=== PATIENT | male | born 1955 | race Caucasian/White ===

== ENCOUNTER 2020-11-28 08:44 | Day surgery (SDC) | payer OTHER ==
[2020-11-22 14:15] VITALS: BMI 55.5
[2020-11-28] MEDS ORDERED: LIDOCAINE 1% (10MG/ML) FOR IV START INTRADERMA ONE (09:30)
[2020-11-28] MEDS ORDERED: LACTATED RINGERS 1,000 ML IV ONE (09:30)
[2020-11-28 09:35] VITALS: TEMP 97.8
[2020-11-28] MEDS ORDERED: PROPOFOL 10 MG/ML 20 ML VIAL IV ONE (09:35)
[2020-11-28] MEDS ORDERED: LIDOCAINE 1% INJ 10MG/ML (20 ML MDV) ONE (09:35)
--- NOTE | 2020-11-28 10:16 | P.PCN ---
Date of Procedure: 11/28/20 Description of Procedure: BRIEF HISTORY: Patient is a 65-year-old male presenting for outpatient colonoscopy for screening for malignant neoplasm of the colon. No prior colonoscopies reported. No change in bowel habits or abdominal pain reported. No family history of colon cancer. PROCEDURE PERFORMED: Colonoscopy with polypectomy. PREOPERATIVE DIAGNOSIS: Screening for malignant neoplasm the colon, no prior colonoscopy reported. ESTIMATED BLOOD LOSS: Minimal. IV sedation per Anesthesia. PROCEDURE: After informed consent was obtained, the patient, was brought into the endoscopy unit. IV sedation was administered by Anesthesia under continuous monitoring. Digital rectal examination was normal. Initially the Olympus CF-190 flexible video colonoscope was then inserted in the rectum, gradually advanced into the cecum without any difficulty. Careful examination was performed as the scope was gradually being withdrawn. Ileocecal valve and the appendiceal orifice were visualized and appeared normal. Prep was excellent. Mucosa of the cecum, ascending colon, transverse colon, descending colon, sigmoid colon, and rectum appeared normal. Diminutive polyps measuring 1-2 mm in size removed from the hepatic flexure, transverse colon, splenic flexure and descending colon. Retro flexion was performed in the rectum and no lesions were seen, low-grade internal hemorrhoids noted. The patient tolerated the procedure well. IMPRESSION: 4 diminutive polyps removed with cold forcep polypectomy from the hepatic flexure, transverse colon, splenic flexure and descending colon. Internal hemorrhoids. RECOMMENDATIONS: Findings of this examination were discussed with the patient and his family. Okay to resume diet. Okay to resume medications. Await pathology from polypectomies. Recommend repeat colonoscopy in 5 years pending pathology from polypectomies.
[2020-11-28 10:41] VITALS: BP 148/78; PULSE 70; RESP 16
== END 2020-11-28 11:06 | disposition home or self-care (01) ==
LOC: ORWHC2ENDO 08:44
PROVIDERS: ATTEND Internal Medicine
DX: Z12.11 Encounter for screening for malignant neoplasm of colon (principal); D12.3 Benign neoplasm of transverse colon; D12.4 Benign neoplasm of descending colon; K64.8 Other hemorrhoids; E78.5 Hyperlipidemia, unspecified; F32.9 Major depressive disorder, single episode, unspecified; E66.01 Morbid (severe) obesity due to excess calories; Z68.43 Body mass index [BMI] 50.0-59.9, adult; Z79.1 Long term (current) use of non-steroidal anti-inflammatories (NSAID); Z79.899 Other long term (current) drug therapy; Z79.891 Long term (current) use of opiate analgesic
CPT/HCPCS: 88305; 45380; J2001; J2704

== ENCOUNTER 2022-01-01 14:50 | Emergency (ER) | payer OTHER ==
[2022-01-01 15:05] VITALS: BP 119/71; PULSE 81; RESP 18; TEMP 98
--- NOTE | 2022-01-01 15:57 | ED ---
General Adult HPI - General Chief complaint: Urogenital Stated complaint: Scrotum Swelling Time Seen by Provider: 01/01/22 15:24 Source: patient, RN notes reviewed, old records reviewed Mode of arrival: ambulatory Limitations: no limitations - History of Present Illness Initial comments: 66-year-old male presents from outpatient clinic for evaluation of scrotal swelling. Patient states his symptoms have been present for the past 5 days. He had discontinued his normal dose of Lasix over the past 5 days as well. He denies a history of congestive heart failure. He does take Lasix for fluid retention and hypertension. He denies chest pain. He reports a mild exertional dyspnea. He has some discomfort in the scrotum but no significant pain. - Related Data Home Medications Medication Instructions Recorded Confirmed Aspirin 325 mg PO DAILY 11/22/20 11/28/20 Fish Oil/Dha/Epa [Fish Oil 1,200 1 each PO DAILY 11/22/20 11/28/20 mg Fish Oil] Fluticasone Nasal [place] [Flonase 1 spray EA NOSTRIL DAILY 11/22/20 11/28/20 Nasal [place]] Furosemide [Lasix] 40 mg PO DAILY 11/22/20 11/28/20 HYDROcodone/APAP 10-325MG [[place] 1 tab PO TID PRN 11/22/20 11/28/20 10-325] Loratadine 10 mg PO DAILY 11/22/20 11/28/20 Meloxicam [Mobic] 15 mg PO DAILY 11/22/20 11/28/20 Simvastatin (Unknown Dose) 1 tab PO DAILY 11/22/20 11/28/20 lisinopriL [Prinivil] 20 mg PO DAILY@0600,1300 11/22/20 11/28/20 Allergies Allergy/AdvReac Type Severity Reaction Status Date / Time No Known Allergies Allergy Verified 01/01/22 15:05 Review of Systems ROS Statement: Those systems with pertinent positive or pertinent negative responses have been documented in the HPI. ROS Other: All systems not noted in ROS Statement are negative. Past Medical History Past Medical History: Hyperlipidemia, Hypertension Additional Past Medical History / Comment(s): back and leg pain, uses cane History of Any Multi-Drug Resistant Organisms: None Reported Past Surgical History: No Surgical Hx Reported Additional Past Anesthesia/Blood Transfusion Reaction / Comment(s): no anesthesia hx. Past Psychological History: Depression Smoking Status: Never smoker Past Alcohol Use History: Occasional Past Drug Use History: None Reported - Past Family History Father Family Medical History: Cancer Additional Family Medical History / Comment(s): pancreatic cancer General Exam Limitations: no limitations General appearance: alert, in no apparent distress Head exam: Present: atraumatic, normocephalic Eye exam: Present: normal appearance, PERRL ENT exam: Present: normal exam Neck exam: Present: normal inspection. Absent: tenderness, meningismus Respiratory exam: Present: decreased breath sounds. Absent: respiratory di stress Cardiovascular Exam: Present: regular rate, normal rhythm GI/Abdominal exam: Present: distended exam: Present: scrotal swelling, vertical testicular lie. Absent: testicular tenderness Extremities exam: Present: pedal edema Neurological exam: Present: alert, oriented X3, CN II-XII intact. Absent: motor sensory deficit Psychiatric exam: Present: normal affect, normal mood Skin exam: Present: warm, dry, intact. Absent: cyanosis, diaphoretic Course Vital Signs 01/01/22 15:02 Temperature 98.0 F Pulse Rate 81 Respiratory 18 Rate Blood Pressure 119/71 O2 Sat by Pulse 95 Oximetry EKG Findings - EKG Comments: EKG Findings:: EKG: Sinus rhythm, low voltage, rate of 72, PA interval 187, QRS duration 94, QTC [address] segment elevation. Medical Decision Making - Medical Decision Making 66-year-old male who presented from outpatient setting for evaluation of scrotal edema. Patient states he does have chronic bilateral lower extremity edema which is at baseline, not worse than usual. He had significant scrotal swelling on exam, no testicular tenderness. Ultrasound was performed which shows edema, as well as bilateral hydroceles. I did obtain cardiac testing to ensure this wasn't a congestive heart failure picture and the troponin, BNP EKG and chest x- ray are all within normal limits. His laboratory testing is unremarkable. He's instructed to resume his Lasix, where tighter fitting undergarments and elevate the scrotum while at rest. - Lab Data Result diagrams: 01/01/22 15:45 01/01/22 15:45 Lab Results 01/01/22 01/01/22 01/01/22 Range/Units 15:45 15:45 15:45 WBC 8.7 (3.8-10.6) k/uL RBC 4.25 L (4.30-5.90) m/uL Hgb 13.8 (13.0-17.5) gm/dL Hct 41.1 (39.0-53.0) % MCV 96.8 (80.0-100.0) fL MCH 32.6 (25.0-35.0) pg MCHC 33.7 (31.0-37.0) g/dL RDW 12.7 (11.5-15.5) % Plt Count 313 (150-450) k/uL MPV 6.5 Neutrophils % 66 % Lymphocytes % 24 % Monocytes % 4 % Eosinophils % 3 % Basophils % 1 % Neutrophils # 5.8 (1.3-7.7) k/uL Lymphocytes # 2.1 (1.0-4.8) k/uL Monocytes # 0.4 (0-1.0) k/uL Eosinophils # 0.3 (0-0.7) k/uL Basophils # 0.1 (0-0.2) k/uL PT 10.2 (9.0-12.0) sec INR 0.9 (<1.2) APTT 22.2 (22.0-30.0) sec Sodium 139 (137-145) mmol/L Potassium 4.4 (3.5-5.1) mmol/L Chloride 104 (98-107) mmol/L Carbon Dioxide 27 (22-30) mmol/L Anion Gap 8 mmol/L BUN 21 H (9-20) mg/dL Creatinine 1.04 (0.66-1.25) mg/dL Est GFR (CKD-EPI)AfAm 87 (>60 ml/min/1.73 sqM) Est GFR (CKD-EPI)NonAf 75 (>60 ml/min/1.73 sqM) Glucose 111 H (74-99) mg/dL Plasma Lactic Acid Robin (0.7-2.0) mmol/L Calcium 9.1 (8.4-10.2) mg/dL Total Bilirubin 0.2 (0.2-1.3) mg/dL AST 37 (17-59) U/L ALT 28 (4-49) U/L Alkaline Phosphatase 85 (38-126) U/L Troponin I (0.000-0.034) ng/mL NT-Pro-B Natriuret Pep pg/mL Total Protein 7.2 (6.3-8.2) g/dL Albumin 4.1 (3.5-5.0) g/dL 01/01/22 01/01/22 01/01/22 Range/Units 15:45 15:45 15:45 WBC (3.8-10.6) k/uL RBC (4.30-5.90) m/uL Hgb (13.0-17.5) gm/dL Hct (39.0-53.0) % MCV (80.0-100.0) fL MCH (25.0-35.0) pg MCHC (31.0-37.0) g/dL RDW (11.5-15.5) % Plt Count (150-450) k/uL MPV Neutrophils % % Lymphocytes % % Monocytes % % Eosinophils % % Basophils % % Neutrophils # (1.3-7.7) k/uL Lymphocytes # (1.0-4.8) k/uL Monocytes # (0-1.0) k/uL Eosinophils # (0-0.7) k/uL Basophils # (0-0.2) k/uL PT (9.0-12.0) sec INR (<1.2) APTT (22.0-30.0) sec Sodium (137-145) mmol/L Potassium (3.5-5.1) mmol/L Chloride (98-107) mmol/L Carbon Dioxide (22-30) mmol/L Anion Gap mmol/L BUN (9-20) mg/dL Creatinine (0.66-1.25) mg/dL Est GFR (CKD-EPI)AfAm (>60 ml/min/1.73 sqM) Est GFR (CKD-EPI)NonAf (>60 ml/min/1.73 sqM) Glucose (74-99) mg/dL Plasma Lactic Acid Robin 2.2 H* (0.7-2.0) mmol/L Calcium (8.4-10.2) mg/dL Total Bilirubin (0.2-1.3) mg/dL AST (17-59) U/L ALT (4-49) U/L Alkaline Phosphatase (38-126) U/L Troponin I <0.012 (0.000-0.034) ng/mL NT-Pro-B Natriuret Pep 78 pg/mL Total Protein (6.3-8.2) g/dL Albumin (3.5-5.0) g/dL Disposition Clinical Impression: Hydrocele, Dependent edema Disposition: HOME SELF-CARE Condition: Fair Instructions (If sedation given, give patient instructions): Hydrocele (ED), Leg Edema (ED) Is patient prescribed a controlled substance at d/c from ED?: No Referrals: [facility],Clinic [Primary Care Provider] - 1-2 days Time of Disposition: 18:00
--- NOTE | 2022-01-01 16:08 | XR ---
EXAMINATION TYPE: XR chest 2V DATE OF EXAM: 01/01/2022 COMPARISON: NONE HISTORY: Shortness of breath TECHNIQUE: Frontal and lateral views of the chest are obtained. FINDINGS: Scattered senescent parenchymal changes noted. Hyperinflation compatible with COPD. No evidence for infiltrate. No evidence for atelectasis. Heart size is stable. Mediastinal structures are stable and grossly unremarkable. No evidence for hilar prominence. Degenerative changes dorsal spine. IMPRESSION: 1. No evidence for acute pulmonary disease.
[2022-01-01 16:11] LABS: Basophils # (A) 0.1 k/uL (0-0.2); Basophils % (A) 1 %; Eosinophils # (A) 0.3 k/uL (0-0.7); Eosinophils % (A) 3 %; HCT 41.1 % (39.0-53.0); HGB 13.8 gm/dL (13.0-17.5); Lymphocytes # (A) 2.1 k/uL (1.0-4.8); Lymphocytes % (A) 24 %; MCH 32.6 pg (25.0-35.0); MCHC 33.7 g/dL (31.0-37.0); MCV 96.8 fL (80.0-100.0); Mean Platelet Volume 6.5; Monocytes # (A) 0.4 k/uL (0-1.0); Monocytes % (A) 4 %; Neutrophils # (A) 5.8 k/uL (1.3-7.7); Neutrophils % (A) 66 %; Platelet Count 313 k/uL (150-450); RBC 4.25 m/uL (4.30-5.90); RDW 12.7 % (11.5-15.5); WBC 8.7 k/uL (3.8-10.6)
[2022-01-01 16:22] LABS: Albumin 4.1 g/dL (3.5-5.0); Calcium 9.1 mg/dL (8.4-10.2); Potassium 4.4 mmol/L (3.5-5.1); Total Bilirubin 0.2 mg/dL (0.2-1.3); Total Protein 7.2 g/dL (6.3-8.2)
[2022-01-01 16:35] LABS: INR 0.9 (<1.2); Partial Thromboplastin Time 22.2 sec (22.0-30.0); Prothrombin Time 10.2 sec (9.0-12.0)
--- NOTE | 2022-01-01 17:43 | US ---
EXAMINATION TYPE: US scrotum with doppler. Grayscale and color Doppler Duplex imaging performed of t demetria scrotum. DATE OF EXAM: 01/01/2022 COMPARISON: NONE CLINICAL HISTORY: swelling. No pain. Swelling. No injury. EXAM MEASUREMENTS: TESTICLES: Right Testicle: 3.4 x 3.8 x 3.4 cm Left Testicle: 4.4 x 3.3 x 2.8 cm EPIDIDYMIS HEAD: Right Epididymis: 1.2 x 1.2 x 0.7 cm Left Epididymis: 1.0 x 1.1 x 1.2 cm Doppler performed to assess for testicular vascularity; good bilateral color flow and waveforms are s een. There is no evidence of testicular torsion. Presence of hydroceles: Bilateral, L>R Presence of varicoceles: no Severe edema visualized bilaterally. Right epididymal head cyst= 1.5 x 1.5 x 1.3 cm Echogenic focus with shadowing in left scrotal sac= 0.4 cm. IMPRESSION: There are bilateral hydroceles. No evidence of testicular torsion. Large right epididymal cyst. No testicular mass. Scrotal edema.
== END 2022-01-01 18:16 | disposition home or self-care (01) ==
LOC: EC 14:50
DX: N43.3 Hydrocele, unspecified (principal); E78.5 Hyperlipidemia, unspecified; I10 Essential (primary) hypertension
CPT/HCPCS: 36415; 71046; 76870; 80053; 83605; 83880; 84484; 85025; 85610; 85730; 93005; 93975; 99285

== ENCOUNTER 2022-01-04 15:18 | Observation (INO) | payer OTHER, MEDICARE ==
[2022-01-04] MEDS ORDERED: FUROSEMIDE 10 MG/ML 10 ML VIAL IV STA (17:17)
[2022-01-04 17:47] LABS: Basophils # (A) 0.1 k/uL (0-0.2); Basophils % (A) 1 %; Eosinophils # (A) 0.3 k/uL (0-0.7); Eosinophils % (A) 2 %; HCT 41.6 % (39.0-53.0); HGB 14.1 gm/dL (13.0-17.5); Lymphocytes # (A) 2.5 k/uL (1.0-4.8); Lymphocytes % (A) 21 %; MCH 32.4 pg (25.0-35.0); MCHC 33.8 g/dL (31.0-37.0); MCV 95.7 fL (80.0-100.0); Mean Platelet Volume 6.8; Monocytes # (A) 0.6 k/uL (0-1.0); Monocytes % (A) 5 %; Neutrophils # (A) 8.7 k/uL (1.3-7.7); Neutrophils % (A) 71 %; Platelet Count 288 k/uL (150-450); RBC 4.34 m/uL (4.30-5.90); RDW 12.4 % (11.5-15.5); WBC 12.4 k/uL (3.8-10.6)
[2022-01-04 17:59] LABS: Albumin 4.1 g/dL (3.5-5.0); Calcium 9.2 mg/dL (8.4-10.2); Potassium 4.7 mmol/L (3.5-5.1); Total Bilirubin 0.4 mg/dL (0.2-1.3); Total Protein 7.2 g/dL (6.3-8.2)
--- NOTE | 2022-01-04 18:47 | ED ---
General Adult HPI - General Chief complaint: Recheck/Abnormal Lab/Rx Stated complaint: Enlarged Scrotum Time Seen by Provider: 01/04/22 16:35 Source: patient, RN notes reviewed, old records reviewed Mode of arrival: wheelchair Limitations: no limitations - History of Present Illness Initial comments: This a 66-year-old male who presents emergency Department complaining that his scrotum is extremely edematous. Patient states he was in the emergency de partment a few days ago and a full workup was done including an ultrasound and he was sent home to increase his Lasix and elevate his scrotum however the scrotum continues to get larger and today he states he cannot find his penis secondary to the swelling. Patient does not want us to do at this time so he came back to the emergency department. Patient denies any pain patient denies any injury patient denies any fever chills. Patient denies any abdominal pain. Patient denies any difficulty breathing or chest pain. - Related Data Home Medications Medication Instructions Recorded Confirmed Aspirin 325 mg PO DAILY 11/22/20 11/28/20 Fish Oil/Dha/Epa [Fish Oil 1,200 1 each PO DAILY 11/22/20 11/28/20 mg Fish Oil] Fluticasone Nasal [place] [Flonase 1 spray EA NOSTRIL DAILY 11/22/20 11/28/20 Nasal [place]] Furosemide [Lasix] 40 mg PO DAILY 11/22/20 11/28/20 HYDROcodone/APAP 10-325MG [[place] 1 tab PO TID PRN 11/22/20 11/28/20 10-325] Loratadine 10 mg PO DAILY 11/22/20 11/28/20 Meloxicam [Mobic] 15 mg PO DAILY 11/22/20 11/28/20 Simvastatin (Unknown Dose) 1 tab PO DAILY 11/22/20 11/28/20 lisinopriL [Prinivil] 20 mg PO DAILY@0600,1300 11/22/20 11/28/20 Allergies Allergy/AdvReac Type Severity Reaction Status Date / Time No Known Allergies Allergy Verified 01/04/22 16:31 Review of Systems ROS Statement: Those systems with pertinent positive or pertinent negative responses have been documented in the HPI. ROS Other: All systems not noted in ROS Statement are negative. Past Medical History Past Medical History: Hyperlipidemia, Hypertension Additional Past Medical History / Comment(s): back and leg pain, uses cane History of Any Multi-Drug Resistant Organisms: None Reported Past Surgical History: No Surgical Hx Reported Additional Past Anesthesia/Blood Transfusion Reaction / Comment(s): no anesthesia hx. Past Psychological History: Depression Smoking Status: Never smoker Past Alcohol Use History: Occasional Past Drug Use History: None Reported - Past Family History Father Family Medical History: Cancer Additional Family Medical History / Comment(s): pancreatic cancer General Exam - General Exam Comments Initial Comments: GENERAL: Patient is well-developed and well-nourished. Patient is nontoxic and well- hydrated and is in no acute distress. ENT: Neck is soft and supple. No significant lymphadenopathy is noted. Oropharynx is clear. Moist mucous membranes. Neck has full range of motion without eliciting any pain. EYES: The sclera were anicteric and conjunctiva were pink and moist. Extraocular movements were intact and pupils were equal round and reactive to light. Eyelids were unremarkable. PULMONARY: Unlabored respirations. Good breath sounds bilaterally. No audible rales rhonchi or wheezing was noted. CARDIOVASCULAR: There is a regular rate and rhythm without any murmurs gallops or rubs. ABDOMEN: Soft and nontender with normal bowel sounds. GENITALIA: patient's scrotum is very edematous there is no area of erythema or necrosis or crepitus patient has no pain in the scrotum or testicle area SKIN: Skin is clear with no lesions or rashes and otherwise unremarkable. NEUROLOGIC: Patient is alert and oriented x3. Cranial nerves II through XII are grossly intact. Motor and sensory are also intact. Normal speech, volume and content. Symmetrical smile. MUSCULOSKELETAL: Normal extremities with adequate strength and full range of motion. 2+ edema bilaterally LYMPHATICS: No significant lymphadenopathy is noted PSYCHIATRIC: Normal psychiatric evaluation. Limitations: no limitations Course Vital Signs 01/04/22 01/04/22 16:31 17:34 Temperature 98 F Pulse Rate 81 70 Respiratory 16 20 Rate Blood Pressure 104/68 135/80 O2 Sat by Pulse 97 99 Oximetry Medical Decision Making - Medical Decision Making I spoke with some physicians agreed to admit the patient admitted patient wrote admitting orders. I placed the patient IV Lasix - Lab Data Result diagrams: 01/04/22 17:29 01/04/22 17:29 Lab Results 01/04/22 01/04/22 Range/Units 17:29 17:29 WBC 12.4 H (3.8-10.6) k/uL RBC 4.34 (4.30-5.90) m/uL Hgb 14.1 (13.0-17.5) gm/dL Hct 41.6 (39.0-53.0) % MCV 95.7 (80.0-100.0) fL MCH 32.4 (25.0-35.0) pg MCHC 33.8 (31.0-37.0) g/dL RDW 12.4 (11.5-15.5) % Plt Count 288 (150-450) k/uL MPV 6.8 Neutrophils % 71 % Lymphocytes % 21 % Monocytes % 5 % Eosinophils % 2 % Basophils % 1 % Neutrophils # 8.7 H (1.3-7.7) k/uL Lymphocytes # 2.5 (1.0-4.8) k/uL Monocytes # 0.6 (0-1.0) k/uL Eosinophils # 0.3 (0-0.7) k/uL Basophils # 0.1 (0-0.2) k/uL Sodium 140 (137-145) mmol/L Potassium 4.7 (3.5-5.1) mmol/L Chloride 101 (98-107) mmol/L Carbon Dioxide 31 H (22-30) mmol/L Anion Gap 8 mmol/L BUN 25 H (9-20) mg/dL Creatinine 1.25 (0.66-1.25) mg/dL Est GFR (CKD-EPI)AfAm 70 (>60 ml/min/1.73 sqM) Est GFR (CKD-EPI)NonAf 61 (>60 ml/min/1.73 sqM) Glucose 116 H (74-99) mg/dL Calcium 9.2 (8.4-10.2) mg/dL Total Bilirubin 0.4 (0.2-1.3) mg/dL AST 32 (17-59) U/L ALT 29 (4-49) U/L Alkaline Phosphatase 90 (38-126) U/L Total Protein 7.2 (6.3-8.2) g/dL Albumin 4.1 (3.5-5.0) g/dL Disposition Clinical Impression: Scrotal edema Disposition: ADMITTED IP TO THIS HOSP Referrals: [facility],Clinic [Primary Care Provider] - 1-2 days Time of Disposition: 18:47
[2022-01-04 18:55] LABS: Appearance,Urine Clear (Clear); Bilirubin,Urine Negative (Negative); Blood,Urine Negative (Negative); Color,Urine Yellow; Glucose,Urine (UA) Negative (Negative); Ketones,Urine Negative (Negative); Leukocyte Esterase,Urine Negative (Negative); Nitrite,Urine Negative (Negative); PH, Urine 5.5 (5.0-8.0); Protein,Urine Negative (Negative); Specific Gravity,Urine 1.012 (1.001-1.035); Urobilinogen,Urine <2.0 mg/dL (<2.0)
[2022-01-04] MEDS: FUROSEMIDE 10 MG/ML 10 ML VIAL IV SCH (23:40)
[2022-01-05] MEDS ORDERED: NALOXONE 0.4 MG/ML 1 ML VIAL IV PRN (00:31)
[2022-01-05] MEDS ORDERED: HYDROcodone/APAP 10-325MG 1 EACH TAB PO PRN (00:34)
--- NOTE | 2022-01-05 00:47 | P.HPIM ---
History of Present Illness H&P Date: 01/04/22 Chief Complaint: scrotal edema 66 year old male with hypertension , hyperlipidemia patient presenting due to worsening swelling of the scrotum and lower extremities, he presented couple days ago for same problem , and after initial workup inthe ED, and scrotal US which showed hydrocele and right epididymal cyst , he was discharged home with increasing his lasix dose. patient reports that this did not help much, and today he felt his scrotal swelling is even worse . he denies any cardiac history or liver problems , he denies any orthopnea , SOB, or changes in his urinary habits. Patient denies any history of blood clots , recent travel or history of abd mass. patient claims that up until 5 years ago , he used to be athletic with regular exercising, but for the past 5 years, it has been getting gradually difficult , and noticed gradual worsening of bilateral leg edema, and since then he has been on lasix. today workup in the ED, over all unremarkable , patient admitted for further workup and IV lasix Review of Systems Pertinent positives as noted in HPI. All other systems were reviewed and are negative Past Medical History Past Medical History: Hyperlipidemia, Hypertension Additional Past Medical History / Comment(s): back and leg pain, uses cane History of Any Multi-Drug Resistant Organisms: None Reported Past Surgical History: No Surgical Hx Reported Additional Past Anesthesia/Blood Transfusion Reaction / Comment(s): no anesthesia hx. Past Psychological History: Depression Smoking Status: Never smoker Past Alcohol Use History: Occasional Past Drug Use History: None Reported - Past Family History Father Family Medical History: Cancer Additional Family Medical History / Comment(s): pancreatic cancer Medications and Allergies Home Medications Medication Instructions Recorded Confirmed Type Furosemide [Lasix] 40 mg PO DAILY@0611/22/20 01/04/22 History HYDROcodone/APAP 10-325MG [[place] 1 tab PO QID PRN 11/22/20 01/04/22 History 10-325] Loratadine 10 mg PO DAILY@0600 11/22/20 01/04/22 History Meloxicam [Mobic] 15 mg PO DAILY PRN 11/22/20 01/04/22 History lisinopriL [Prinivil] 20 mg PO BID@0600,1300 11/22/20 01/04/22 History Aspirin EC [Ecotrin Low Dose] 81 mg PO DAILY@0600 01/04/22 07/08/22 History Naloxone HCl [Narcan] 4 mg NASAL ONCE PRN 01/04/22 01/04/22 History Simvastatin [Zocor] 80 mg PO DAILY@59901/04/22 01/04/22 History Allergies Allergy/AdvReac Type Severity Reaction Status Date / Time No Known Allergies Allergy Verified 01/04/22 16:31 Physical Exam Vitals: Vital Signs Temp Pulse Pulse Resp BP BP Pulse Ox 01/04/22 19:58 98.0 F 82 18 120/71 98 01/04/22 19:34 82 16 103/64 98 01/04/22 17:34 70 20 135/80 99 01/04/22 16:31 98 F 81 16 104/68 97 Intake and Output 01/04/22 01/04/22 01/05/22 14:59 22:59 06:59 Other: # Voids 1 Weight 195.045 kg Constitutional: No acute distress, conversant, pleasant Eyes: Anicteric sclerae, moist conjunctiva, Pupils equal round reactive to light ENMT: NC/AT Oropharynx clear, no erythema, or exudates Neck: Supple, FROM, no masses, or JVD No carotid bruits No thyromegaly Lungs: Clear to auscultation Clear to percussion Normal respiratory effort, no accessory muscle use Cardiovascular: Heart regular in rate and rhythm, No murmurs, gallops, or rubs +2 bilateral peripheral edema Abdominal: Soft Nontender, no guarding, rebound or rigidity Abdomen moving with respiration Normoactive bowel sounds Obese limiting exam, no palpable masses Significant swelling of the scrotum with dependent edema no tenderness to palpation no warmth to the touch no erythema Skin: Normal temperature, tone, texture, turgor Gynecomastia No induration No subcutaneous nodules No rash, lesions No ulcers Extremities: No digital cyanosis No clubbing Pedal pulses intact and symmetrical Radial pulses intact and symmetrical No calf tenderness Psychiatric: Alert and oriented to person, place and time Appropriate affect fair judgement Neuro Muscles Strength 4-5/5 in all 4 extremities Sensation to light touch grossly present throughout Cranial nerves II-XII grossly intact No focal sensory deficits Lymphatics: no palpable cervical or supraclavicular , or inguinal lymph nodes Results CBC & Chem 7: 01/04/22 17:29 01/04/22 17:29 Labs: Abnormal Lab Results - Last 24 Hours (Table) 01/04/22 01/04/22 Range/Units 17:29 17:29 WBC 12.4 H (3.8-10.6) k/uL Neutrophils # 8.7 H (1.3-7.7) k/uL Carbon Dioxide 31 H (22-30) mmol/L BUN 25 H (9-20) mg/dL Glucose 116 H (74-99) mg/dL Thrombosis Risk Factor Assmnt - Choose All That Apply Each Factor Represents 1 point: Obesity (BMI >25) Each Risk Factor Represents 2 Points: Age 61-74 years Thrombosis Risk Factor Assessment Total Risk Factor Score: 3 Thrombosis Risk Factor Assessment Level: Moderate Risk Assessment and Plan Assessment: Bilateral lower extremity edema and scrotal swelling Initiated on IV Lasix Check echocardiogram Check abdominal ultrasound Scrotal ultrasound from few days ago showed bilateral hydrocele with right epididymal cyst Check liver enzymes Check thyroid function Fall precautions Chronic conditions Hyperlipidemia continue simvastatin Hypertension continue lisinopril Full code Heparin subcu 3 times a day for DVT prophylaxis Anticipated length of stay less than 2 midnights
[2022-01-05 02:46] VITALS: TEMP 97.7
[2022-01-05] MEDS: lisinopriL 20 MG TAB PO SCH ×2 (05:21→13:33)
[2022-01-05] MEDS ORDERED: LORATADINE 10 MG TAB PO SCH (06:00)
[2022-01-05] MEDS ORDERED: ASPIRIN 81 MG PO SCH (06:00)
[2022-01-05] MEDS ORDERED: ATORVASTATIN 40 MG TAB PO SCH (06:00)
--- NOTE | 2022-01-05 07:59 | US ---
EXAMINATION TYPE: US abdomen complete DATE OF EXAM: 01/05/2022 COMPARISON: NONE CLINICAL HISTORY: scrotal and lower extremities edema. EXAM MEASUREMENTS: Liver Length: 21.9 cm Gallbladder Wall: 0.3 cm CBD: 0.5 cm Spleen: 12.4 cm Right Kidney: 11.3 x 5.9 x 6.0 cm Left Kidney: 12.3 x 5.4 x 6.8 cm Technically difficult study due to large patient body habitus. Pancreas: not well visualized due to overlying bowel gas Liver: difficult to penetrate, enlarged. Gallbladder: No stones seen Evidence for sonographic Torres's sign: No CBD: wnl Spleen: wnl Right Kidney: No hydronephrosis or masses seen Left Kidney: No hydronephrosis or masses seen Upper IVC: wnl Abd Aorta: not visualized The visualized liver is markedly heterogeneously hyperechoic. Evaluation for focal masses suboptimal due to the heterogeneity. Hepatomegaly is felt present. The intrahepatic portion of the IVC is ident ified. Suboptimal evaluation of the abdominal aorta. There is no evidence of shadowing mobile choleli thiasis. Common bile duct is unremarkable. The visualized portions of the pancreas are homogenous. Portions are obscured by overlying bowel gas The spleen is unremarkable. Kidneys are symmetric and free of hydronephrosis. No renal lesions are seen. IMPRESSION: Suboptimal study. Hepatomegaly with heterogeneously hyperechoic liver consistent with dif fuse fatty infiltration and/or underlying hepatocellular disease.
[2022-01-05] MEDS ORDERED: HEPARIN SODIUM,PORCINE/PF 5,000 UNIT/0.5 ML SYRINGE SQ SCH (08:00)
[2022-01-05 08:43] LABS: Basophils # (A) 0.05 X 10*3/uL (0.00-0.10); Basophils % (A) 0.6 %; Eosinophils # (A) 0.29 X 10*3/uL (0.04-0.35); Eosinophils % (A) 3.3 %; HCT 40.9 % (39.6-50.0); HGB 13.3 g/dL (13.0-17.0); Immature Grans, Automated 0.2 %; Lymphocytes # (A) 1.64 X 10*3/uL (0.90-5.00); Lymphocytes % (A) 18.5 %; MCH 30.6 pg (27.0-32.0); MCHC 32.5 g/dL (32.0-37.0); MCV 94.2 fL (80.0-97.0); Monocytes # (A) 0.52 X 10*3/uL (0.20-1.00); Monocytes % (A) 5.9 %; NRBC Per 100 WBC 0 /100 WBCS (0.0-0.0); Neutrophils # (A) 6.34 X 10*3/uL (1.80-7.70); Neutrophils % (A) 71.5 %; Platelet Count 273 X 10*3/uL (140-440); RBC 4.34 X 10*6/uL (4.40-5.60); RDW 12.3 % (11.5-14.5); WBC 8.86 X 10*3/uL (4.50-10.00)
[2022-01-05] MEDS: FUROSEMIDE 10 MG/ML 10 ML VIAL IV SCH (08:49)
--- NOTE | 2022-01-05 09:08 | CA ---
Transthoracic Echo Report Name: Des Townsend Age: 66 Gender: M : 1955 Exam Date: 01/05/2022 08:01 Exam Location: [place] [facility] Ht (in): 71 Wt (lb): 430 Ordering Physician: Lily Sotelo MD Attending/Referring Phys: [id number], Ashleigh Hepatology Physician Vandana Huggins RDCS Procedure CPT: Indications: scrotal and LE edema Cardiac Hx: Technical Quality: Technically difficult study Contrast 1: Lumason Total Dose (mL): 1 Contrast 2: Total Dose (mL): MEASUREMENTS (Male / Female) Normal Values 2D ECHO LV Diastolic Diameter PLAX 3.5 cm 4.2 - 5.9 / 3.9 - 5.3 cm LV Systolic Diameter PLAX 2.3 cm IVS Diastolic Thickness 1.2 cm 0.6 - 1.0 / 0.6 - 0.9 cm LVPW Diastolic Thickness 1.4 cm 0.6 - 1.0 / 0.6 - 0.9 cm LV Relative Wall Thickness 0.8 RV Internal Dim ED PLAX 2.8 cm M-MODE Aortic Root Diameter MM 3.9 cm LA Systolic Diameter MM 3.2 cm LA Ao Ratio MM 0.8 MV E Point Septal Separation 1.1 cm DOPPLER AV Peak Velocity 108.5 cm/s AV Peak Gradient 4.7 mmHg MV Area PHT 2.9 cm??? MR Peak Velocity 111.1 cm/s MR Peak Gradient 4.9 mmHg Mitral E Point Velocity 62.7 cm/s Mitral A Point Velocity 53.3 cm/s Mitral E to A Ratio 1.2 MV Deceleration Time 258.6 ms MV E' Velocity 5.8 cm/s Mitral E to MV E' Ratio 10.7 TR Peak Velocity 99.1 cm/s TR Peak Gradient 3.9 mmHg Right Ventricular Systolic Press 8.9 mmHg FINDINGS Left Ventricle Mildly increased septal wall thickness. Left ventricular ejection fraction is estimated at 55-60 %. Lumason used to visualize heart. Limited views and measurements. Right Ventricle Right ventricle not well visualized. Right Atrium Right atrium not well visualized. Left Atrium Left atrium not well visualized. Mitral Valve Mitral valve not well visualized. Aortic Valve Aortic valve not well visualized. Tricuspid Valve Tricuspid valve not well visualized. Pulmonic Valve Pulmonic valve not well visualized. Pericardium No pericardial effusion. Aorta Aortic root and proximal ascending aorta not well visualized. CONCLUSIONS Technically difficult study Normal left ventricular ejection fraction 55-60% Normal right ventricular size and function Mild mitral regurgitation Previewed by: Dr. Stan King DO (Electronically Signed) Final Date: 05 January 2022 09:07
[2022-01-05 09:36] LABS: ALT 28 U/L (10-49); AST 23 U/L (14-35); African American GFR (CKD) 77.8 (60.0-200.0); Albumin/Globulin Ratio 1.57 (1.60-3.17); Alkaline Phosphatase 85 U/L (41-126); BUN/Creat Ratio 19.04 Ratio (12.00-20.00); Blood Urea Nitrogen 21.7 mg/dL (9.0-27.0); Carbon Dioxide 24.3 mmol/L (20.0-27.5); Chloride 100 mmol/L (96-109); Globulin 2.5 g/dL (1.6-3.3); Glucose 138 mg/dL (70-110); Non-African American GFR(CKD) 67.1 (60.0-200.0); Potassium 4.1 mmol/L (3.5-5.5); Sodium 139 mmol/L (135-145); Total Protein 6.5 g/dL (6.2-8.2)
--- NOTE | 2022-01-05 11:48 | P.GSCN ---
History of Present Illness Consult date: 01/05/22 History of present illness: 66-year-old gentleman admitted for scrotal edema. This patient is a morbidly obese, 435 pound gentleman who came in the emergency room a couple days ago with scrotal edema. He was given Lasix. The edema did not change significantly thus he return. Submitted for further evaluation. He denies Fever or chills. There is been no trauma. There is been no significant redness. He voids on Flomax from the [facility]. He had a scrotal ultrasound that showed a left-sided hydrocele and a small right epididymal cyst Review of Systems All systems: negative - Constitutional Denies fever, Denies weight loss - EENT Eyes: denies blurred vision Ears, nose, mouth and throat: Denies dysphagia - Cardiovascular Denies chest pain, Denies shortness of breath - Respiratory Denies cough, Denies 7 - Gastrointestinal Reports as per HPI - Genitourinary Denies dysuria, Denies hematuria - Integumentary Denies rash, Denies unusual bruising - Neurological Denies headaches, Denies syncope - Hematologic/Lymphatic Denies easy bleeding, Denies easy bruising Past Medical History Past Medical History: Hyperlipidemia, Hypertension Additional Past Medical History / Comment(s): back and leg pain, uses cane History of Any Multi-Drug Resistant Organisms: None Reported Past Surgical History: No Surgical Hx Reported Additional Past Anesthesia/Blood Transfusion Reaction / Comm: no anesthesia hx. Past Psychological History: Depression Smoking Status: Never smoker Past Alcohol Use History: Occasional Past Drug Use History: None Reported - Past Family History Father Family Medical History: Cancer Additional Family Medical History / Comment(s): pancreatic cancer Medications and Allergies Home Medications Medication Instructions Recorded Confirmed Type Furosemide [Lasix] 40 mg PO DAILY@0600 11/22/20 01/04/22 History HYDROcodone/APAP 10-325MG [[place] 1 tab PO QID PRN 11/22/20 01/04/22 History 10-325] Loratadine 10 mg PO DAILY@0600 11/22/20 01/04/22 History Meloxicam [Mobic] 15 mg PO DAILY PRN 11/22/20 01/04/22 History lisinopriL [Prinivil] 20 mg PO BID@0600,1300 11/22/20 01/04/22 History Aspirin EC [Ecotrin Low Dose] 81 mg PO DAILY@0601/04/22 01/04/22 History Naloxone HCl [Narcan] 4 mg NASAL ONCE PRN 01/04/22 01/04/22 History Simvastatin [Zocor] 80 mg PO DAILY@00 01/04/22 01/04/22 History Allergies Allergy/AdvReac Type Severity Reaction Status Date / Time No Known Allergies Allergy Verified 01/04/22 16:31 Surgical - Exam Vital Signs Temp Pulse Resp BP Pulse Ox 98 F 81 16 104/68 97 01/04/22 16:31 01/04/22 16:31 01/04/22 16:31 01/04/22 16:31 01/04/22 16:31 - General well developed, well nourished, no distress, obese - Eyes PERRL - ENT normal mucosa - Respiratory normal expansion, normal respiratory effort - Cardiovascular Rhythm: regular - Abdomen Abdomen: soft, non tender Hernia: none - Genitourinary Uncircumcised phallus. Soft, chronically enlarged scrotum. Chronic scrotal edema. No evidence of erythema. no clinical hydrocele. - Integumentary Chronic venous stasis, lower extremity edema - Neurologic normal coordination, normal sensation - Musculoskeletal normal posture - Psychiatric oriented to time, oriented to person, oriented to place, speech is normal, memory intact Results - Labs 01/05/22 05:30 01/05/22 05:30 Abnormal Lab Results - Last 24 Hours (Table) 01/04/22 01/04/22 01/05/22 Range/Units 17:29 17:29 05:30 WBC 12.4 H (3.8-10.6) k/uL RBC 4.34 L (4.40-5.60) X 10*6/uL MPV 9.0 L (9.5-12.2) fL Neutrophils # 8.7 H (1.3-7.7) k/uL Carbon Dioxide 31 H (22-30) mmol/L BUN 25 H (9-20) mg/dL Glucose 116 H (74-99) mg/dL Albumin/Globulin Ratio (1.60-3.17) g/dL 01/05/22 Range/Units 05:30 WBC (3.8-10.6) k/uL RBC (4.40-5.60) X 10*6/uL MPV (9.5-12.2) fL Neutrophils # (1.3-7.7) k/uL Carbon Dioxide (22-30) mmol/L BUN (9-20) mg/dL Glucose 138 H (74-99) mg/dL Albumin/Globulin Ratio 1.57 L (1.60-3.17) g/dL Diabetes panel 01/04/22 01/05/22 Range/Units 17:29 05:30 Sodium 140 139 (137-145) mmol/L Potassium 4.7 4.1 (3.5-5.1) mmol/L Chloride 101 100 (98-107) mmol/L Carbon Dioxide 31 H 24.3 (22-30) mmol/L BUN 25 H 21.7 (9-20) mg/dL Creatinine 1.25 1.1 (0.66-1.25) mg/dL Glucose 116 H 138 H (74-99) mg/dL Calcium 9.2 9.0 (8.4-10.2) mg/dL AST 32 23 (17-59) U/L ALT 29 28 (4-49) U/L Alkaline Phosphatase 90 85 (38-126) U/L Total Protein 7.2 6.5 (6.3-8.2) g/dL Albumin 4.1 4.0 (3.5-5.0) g/dL Thyroid panel 01/05/22 Range/Units 05:30 TSH 1.510 (0.350-5.500) uIU/mL Calcium panel 01/04/22 01/05/22 Range/Units 17:29 05:30 Calcium 9.2 9.0 (8.4-10.2) mg/dL Albumin 4.1 4.0 (3.5-5.0) g/dL Pituitary panel 01/04/22 01/05/22 Range/Units 17:29 05:30 Sodium 140 139 (137-145) mmol/L Potassium 4.7 4.1 (3.5-5.1) mmol/L Chloride 101 100 (98-107) mmol/L Carbon Dioxide 31 H 24.3 (22-30) mmol/L BUN 25 H 21.7 (9-20) mg/dL Creatinine 1.25 1.1 (0.66-1.25) mg/dL Glucose 116 H 138 H (74-99) mg/dL Calcium 9.2 9.0 (8.4-10.2) mg/dL TSH 1.510 (0.350-5.500) uIU/mL Adrenal panel 01/04/22 01/05/22 Range/Units 17:29 05:30 Sodium 140 139 (137-145) mmol/L Potassium 4.7 4.1 (3.5-5.1) mmol/L Chloride 101 100 (98-107) mmol/L Carbon Dioxide 31 H 24.3 (22-30) mmol/L BUN 25 H 21.7 (9-20) mg/dL Creatinine 1.25 1.1 (0.66-1.25) mg/dL Glucose 116 H 138 H (74-99) mg/dL Calcium 9.2 9.0 (8.4-10.2) mg/dL Total Bilirubin 0.4 0.40 (0.2-1.3) mg/dL AST 32 23 (17-59) U/L ALT 29 28 (4-49) U/L Alkaline Phosphatase 90 85 (38-126) U/L Total Protein 7.2 6.5 (6.3-8.2) g/dL Albumin 4.1 4.0 (3.5-5.0) g/dL - Imaging US - pelvic: report reviewed, image reviewed Assessment and Plan Assessment: Impression: Scrotal edema chronic, nonsurgical. Morbid obesity. Chronic venous stasis in the lower extremities. Recommendation: Nothing surgical that can be done. The ultrasound shows a left- sided hydrocele which is not clinical. Epididymal cyst is very small. The only recommendation I have his scrotal support.
[2022-01-05 14:15] VITALS: BP 132/81; PULSE 92; RESP 21
--- NOTE | 2022-01-05 14:17 | P.DS ---
Providers Date of admission: 01/04/22 18:48 Expected date of discharge: 01/05/22 Attending physician: Nancy Villafana DO Consults: 01/05/22 00:49 Consult Physician Routine Consulting Provider: Kenji Navarrete Consult Reason/Comments: scrotal edema , hydrocele , cyst Do you want consulting provider notified?: Yes, Notify in am Primary care physician: [facility] Hospital Course: 66 year old male with hypertension , hyperlipidemia who presented to the ER due to worsening swelling of the scrotum and lower extremities. Had workup in the ED, and scrotal US which showed hydrocele and right epididymal cyst , he was discharged home with increasing his lasix dose. patient reports that this did not help much, and came back to the ER because he felt his scrotal swelling is even worse. No orthopnea , SOB, or changes in his urinary habits. Patient denies any history of blood clots , recent travel or history of abd mass. He claims that up until 5 years ago , he used to be athletic with regular exercising, but for the past 5 years, it has been getting gradually difficult , and noticed gradual worsening of bilateral leg edema, and since then he has been on lasix. Patient was admitted, was started on IV Lasix. It was at 40 mg every 8 hours. He was seen by urology was not having further recommendations. Further workup during the hospitalization included TSH which came back okay, echocardiogram showed normal EF. Liver ultrasound showed fatty liver versus hepatocellular disease however LFTs were okay. Findings more consistent with fatty liver. Weight loss, diet and exercise were advised. He was encouraged to swim. Upon discharge Lasix dose will be doubled to 40 mg by mouth twice a day, he'll be discharged home in stable condition. Time for discharge 35 min Plan - Discharge Summary New Discharge Prescriptions: Continue lisinopriL [Prinivil] 20 mg PO BID@0600,1300 HYDROcodone/APAP 10-325MG [[place] 10-325] 1 tab PO QID PRN PRN Reason: Pain Aspirin EC [Ecotrin Low Dose] 81 mg PO DAILY@0600 Naloxone HCl [Narcan] 4 mg NASAL ONCE PRN PRN Reason: Overdose Meloxicam [Mobic] 15 mg PO DAILY PRN PRN Reason: Inflammation Loratadine 10 mg PO DAILY@0600 Simvastatin [Zocor] 80 mg PO DAILY@0600 Changed Furosemide [Lasix] 40 mg PO BID 30 Days #60 tab Discharge Medication List HYDROcodone/APAP 10-325MG [[place] 10-325] 1 tab PO QID PRN 11/22/20 [History] Loratadine 10 mg PO DAILY@0600 11/22/20 [History] Meloxicam [Mobic] 15 mg PO DAILY PRN 11/22/20 [History] lisinopriL [Prinivil] 20 mg PO BID@0600,1300 11/22/20 [History] Aspirin EC [Ecotrin Low Dose] 81 mg PO DAILY@0600 01/04/22 [History] Naloxone HCl [Narcan] 4 mg NASAL ONCE PRN 01/04/22 [History] Simvastatin [Zocor] 80 mg PO DAILY@0600 01/04/22 [History] Furosemide [Lasix] 40 mg PO BID 30 Days #60 tab 01/05/22 [Rx] Follow up Appointment(s)/Referral(s): [facility],Clinic [Primary Care Provider] - 1-2 days
== END 2022-01-05 15:22 | disposition home or self-care (01) ==
LOC: EC 15:18 → 6NMEDSUR 18:48
PROVIDERS: ADMIT Internal Medicine; ATTEND Internal Medicine
DX: N43.3 Hydrocele, unspecified (principal); N50.3 Cyst of epididymis; R60.0 Localized edema; I10 Essential (primary) hypertension; E78.5 Hyperlipidemia, unspecified; I34.0 Nonrheumatic mitral (valve) insufficiency; M79.606 Pain in leg, unspecified; M54.9 Dorsalgia, unspecified; F32.A Depression, unspecified; E66.01 Morbid (severe) obesity due to excess calories; Z68.43 Body mass index [BMI] 50.0-59.9, adult; I87.8 Other specified disorders of veins; Z71.3 Dietary counseling and surveillance; Z71.82 Exercise counseling; Z79.899 Other long term (current) drug therapy; Z79.1 Long term (current) use of non-steroidal anti-inflammatories (NSAID); Z79.82 Long term (current) use of aspirin; Z80.0 Family history of malignant neoplasm of digestive organs
CPT/HCPCS: 96376 ×2; 96372; 96374; 99284; 36415; 93306; 83880; 80053 ×2; 84443; 85025 ×2; 81003; 76700; G0378 ×2; J1940 ×2; Q9950; J1644

== ENCOUNTER 2023-07-28 15:07 | Emergency (ER) | payer OTHER ==
[2023-07-28 15:45] VITALS: TEMP 98.1
--- NOTE | 2023-07-28 15:46 | ED ---
Extremity Problem HPI - General Chief complaint: Extremity Problem,Nontraumatic Stated complaint: L leg swollen/pain Time Seen by Provider: 07/28/23 15:43 Source: patient, RN notes reviewed Mode of arrival: wheelchair Limitations: no limitations - History of Present Illness Initial comments: This is a 67-year-old male who presents to the emergency department for left leg pain and swelling. States that this has been worsening over the last week. States that it seemed to start in the foot and is now traveling up the leg. Reports that it feels very tight and it is also becoming red. Denies any injuries, chest pain or shortness of breath. Not taking any blood thinners. Denies any hx of blood clots. MD Complaint: extremity pain, extremity swelling Onset/Timin -: week(s) - Related Data Home Medications Medication Instructions Recorded Confirmed HYDROcodone/APAP 10-325MG [[place] 1 tab PO QID PRN 11/22/20 02/12/22 10-325] Loratadine 10 mg PO DAILY@0600 11/22/20 02/12/22 Meloxicam [Mobic] 15 mg PO DAILY PRN 11/22/20 02/12/22 lisinopriL [Prinivil] 20 mg PO BID@0600,1300 11/22/20 02/12/22 Aspirin EC [Ecotrin Low Dose] 81 mg PO DAILY@0600 01/04/22 02/12/22 Naloxone HCl [Narcan] 4 mg NASAL ONCE PRN 01/04/22 02/12/22 Simvastatin [Zocor] 80 mg PO DAILY@0600 01/04/22 02/12/22 Previous Rx's Medication Instructions Recorded Furosemide [Lasix] 40 mg PO BID 30 Days #60 tab 01/05/22 Apixaban [Eliquis Starter Pack 5 - 10 mg PO DIRECTED 30 Days 07/28/23 (for VTE)] #1 each Apixaban [Eliquis Starter Pack 5 - 10 mg PO DIRECTED 30 Days 07/28/23 (for VTE)] #1 each Allergies Allergy/AdvReac Type Severity Reaction Status Date / Time No Known Allergies Allergy Verified 07/28/23 15:44 Review of Systems ROS Statement: Those systems with pertinent positive or pertinent negative responses have been documented in the HPI. ROS Other: All systems not noted in ROS Statement are negative. Past Medical History Past Medical History: Hyperlipidemia, Hypertension Additional Past Medical History / Comment(s): back and leg pain, uses cane History of Any Multi-Drug Resistant Organisms: None Reported Past Surgical History: No Surgical Hx Reported Additional Past Surgical History / Comment(s): Scrotal surgery. Additional Past Anesthesia/Blood Transfusion Reaction / Comment(s): no anesthesia hx. Past Psychological History: Depression Smoking Status: Never smoker Past Alcohol Use History: Occasional Past Drug Use History: None Reported - Past Family History Father Family Medical History: Cancer Additional Family Medical History / Comment(s): pancreatic cancer General Exam - General Exam Comments Initial Comments: Visual Physical Exam Vital signs reviewed General: Well-appearing, nontoxic, no acute distress. Head: Normocephalic, atraumatic Eyes: PERRLA, EOMI ENT: Airway patent Chest: Nonlabored breathing Skin: No visual rash, normal skin tone Neuro: Alert and oriented 3 Musculoskeletal: No gross abnormalities Limitations: no limitations General appearance: alert, in no apparent distress Head exam: Present: atraumatic, normocephalic, normal inspection Respiratory exam: Present: normal lung sounds bilaterally. Absent: respiratory distress, wheezes, rales, rhonchi, stridor Cardiovascular Exam: Present: regular rate, normal rhythm, normal heart sounds. Absent: systolic murmur, diastolic murmur, rubs, gallop, clicks Extremities exam: Present: other (Left lower extremity tenderness, swelling, and erythema beginning in the mid calf and spreading distally.) Neurological exam: Present: alert, oriented X3, CN II-XII intact Psychiatric exam: Present: normal affect, normal mood Course Vital Signs 07/28/23 07/28/23 15:42 18:38 Temperature 98.1 F Pulse Rate 83 76 Respiratory 20 18 Rate Blood Pressure 146/80 145/79 O2 Sat by Pulse 98 98 Oximetry Medical Decision Making - Medical Decision Making This is a 67-year-old male who presents to the emergency department for left leg pain and swelling. Was pt. sent in by a medical professional or institution? @ -No Did you speak to anyone other than the patient for history? @ -No Did you review nursing and triage notes? @ -Yes, and I agree, it is accurate with regards to the patient's symptoms. Were old charts reviewed? @ -No Differential Diagnosis? @ -Differential Leg Pain: Leg fracture, leg sprain, DVT, PVD, arterial insufficiency, iliac artery aneurysm, cellulitis, compartment syndrome, tendinopathy, nerve entrapment, piriformis syndrome, osteoarthritis, rhabdomyolysis, myositis, cramping from an electrolyte imbalance, this is not meant to be an all inclusive list. EKG interpreted by me (3pts min.)? @ Not obtained X-rays interpreted by me (1pt min.)? @ -Not obtained CT interpreted by me (1pt min.)? @ -Not obtained U/S interpreted by me (1pt. min.)? @ -Duplex US of the left lower extremity obtained. My interpretation identifies a DVT. What testing was considered but not performed? (CT, X-rays, U/S, labs)? Why? @ -None What meds were considered but not given? Why? @ -None Did you discuss the management of the patient with other professionals? @ -No Did you reconcile home meds? @ -No Was smoking cessation discussed for >3mins.? @ -No Was critical care preformed (if so, how long)? @ -No Were there social determinants of health that impacted care today? How? (Homelessness, low income, unemployed, alcoholism, drug addiction, transportation, low edu. Level, literacy, decrease access to med. care, fdc, rehab)? @ -No Was there de-escalation of care discussed even if they declined? (Discuss DNR or withdrawal of care, Hospice)? @ -No What co-morbidities impacted this encounter? (DM, HTN, Smoking, COPD, CAD, Cancer, CVA, Hep., AIDS, mental health diagnosis, sleep apnea, morbid obesity)? @ -HLD, HTN Was patient admitted / discharged? @ -Discharged. Lab work obtained and found to be unremarkable. Duplex US of the left lower extremity obtained demonstrating a DVT in the left popliteal and posterior tibial veins. Patient denies any chest pain or shortness of breath. He was given an initial dose of Eliquis in the emergency department and an Rx for Eliquis starter pack was provided with dosing instructions reviewed. Patient advised that if he has any chest pain or shortness of breath, that he should return to the emergency department immediately. He has a follow up appointment with his PCP in 2 days. He is advised to follow up as scheduled. Information for follow up with vascular provided as well. Undiagnosed new problem with uncertain prognosis? @ -None Drug Therapy requiring intensive monitoring for toxicity (Heparin, Nitro, Insulin, Cardizem)? @ -None Were any procedures done? @ -None Diagnosis/symptom? @ -DVT Acute, or Chronic, or Acute on Chronic? @ -Acute Uncomplicated (without systemic symptoms) or Complicated (systemic symptoms)? @ -Uncomplicated Side effects of treatment? @ -None Exacerbation, Progression, or Severe Exacerbation] @ -Not applicable Poses a threat to life or bodily function? @ -Unlikely, unless the clot were to travel. Return precautions reviewed in depth, the patient is instructed to return to the emergency department with any new, worsening, or concerning symptoms. Patient verbalized understanding. This case was discussed in detail with the attending ED physician, Dr. Andres. Presentation, findings, and treatment plan discussed in detail as well. - Lab Data Result diagrams: 07/28/23 17:26 07/28/23 17:26 Lab Results 07/28/23 07/28/23 07/28/23 Range/Units 17:26 17:26 17:26 WBC 7.5 (3.8-10.6) k/uL RBC 4.36 (4.30-5.90) m/uL Hgb 14.5 (13.0-17.5) gm/dL Hct 41.2 (39.0-53.0) % MCV 94.6 (80.0-100.0) fL MCH 33.2 (25.0-35.0) pg MCHC 35.1 (31.0-37.0) g/dL RDW 12.5 (11.5-15.5) % Plt Count 268 (150-450) k/uL MPV 6.5 Neutrophils % 65 % Lymphocytes % 23 % Monocytes % 6 % Eosinophils % 3 % Basophils % 1 % Neutrophils # 4.9 (1.3-7.7) k/uL Lymphocytes # 1.8 (1.0-4.8) k/uL Monocytes # 0.4 (0-1.0) k/uL Eosinophils # 0.2 (0-0.7) k/uL Basophils # 0.1 (0-0.2) k/uL PT 10.1 (10.0-12.5) sec INR 0.9 (<1.2) APTT 21.8 L (22.0-30.0) sec Sodium 138 (137-145) mmol/L Potassium 4.8 (3.5-5.1) mmol/L Chloride 104 (98-107) mmol/L Carbon Dioxide 22 (22-30) mmol/L Anion Gap 12 mmol/L BUN 20 (9-20) mg/dL Creatinine 0.92 (0.66-1.25) mg/dL Est GFR (CKD-EPI)AfAm >90 (>60 ml/min/1.73 sqM) Est GFR (CKD-EPI)NonAf 87 (>60 ml/min/1.73 sqM) Glucose 110 H (74-99) mg/dL Calcium 9.4 (8.4-10.2) mg/dL Total Bilirubin 0.5 (0.2-1.3) mg/dL AST 40 (17-59) U/L ALT 35 (4-49) U/L Alkaline Phosphatase 89 (38-126) U/L Total Protein 7.8 (6.3-8.2) g/dL Albumin 4.5 (3.5-5.0) g/dL - Radiology Data Radiology results: report reviewed, image reviewed Disposition Clinical Impression: Left leg DVT Disposition: HOME SELF-CARE Instructions (If sedation given, give patient instructions): Deep Vein Thrombosis (ED) Additional Instructions: Return to the emergency department with any new, worsening, or concerning symptoms, especially any chest pain or shortness of breath. Take the Eliquis as prescribed for 30 days. Follow up with your primary care provider as scheduled on Friday. Follow up with vascular surgery as well. Prescriptions: Apixaban [Eliquis Starter Pack (for VTE)] 5 - 10 mg PO DIRECTED 30 Days #1 each Apixaban [Eliquis Starter Pack (for VTE)] 5 - 10 mg PO DIRECTED 30 Days #1 each Is patient prescribed a controlled substance at d/c from ED?: No Referrals: Ponce Booth DO [Primary Care Provider] - 1-2 days Luis Peralta DO [STAFF PHYSICIAN] - 1-2 days Time of Disposition: 18:20
--- NOTE | 2023-07-28 16:27 | US ---
EXAMINATION TYPE: US venous doppler duplex LE LT DATE OF EXAM: 07/28/2023 4:11 PM COMPARISON: NONE CLINICAL INDICATION: Male, 67 years old with history of Left leg pain and swelling; x 1 week; Redness to LLE calf/tyson SIDE PERFORMED: Left TECHNIQUE: The lower extremity deep venous system is examined utilizing real time linear array sonog mc with graded compression, doppler sonography and color-flow sonography. VESSELS IMAGED: Common Femoral Vein Deep Femoral Vein Greater Saphenous Vein * Femoral Vein Popliteal Vein Small Saphenous Vein * Proximal Calf Veins (* superficial vessels) Right Leg: NA Left Leg: Positive for DVT DVT within the left popliteal and posterior tibial veins IMPRESSION: 1. Deep venous thrombosis within the left popliteal and posterior tibial veins.
[2023-07-28] MEDS ORDERED: APIXABAN 5 MG TAB PO ONE (16:46)
[2023-07-28 17:44] LABS: Basophils # (A) 0.1 k/uL (0-0.2); Basophils % (A) 1 %; Eosinophils # (A) 0.2 k/uL (0-0.7); Eosinophils % (A) 3 %; HCT 41.2 % (39.0-53.0); HGB 14.5 gm/dL (13.0-17.5); Lymphocytes # (A) 1.8 k/uL (1.0-4.8); Lymphocytes % (A) 23 %; MCH 33.2 pg (25.0-35.0); MCHC 35.1 g/dL (31.0-37.0); MCV 94.6 fL (80.0-100.0); Mean Platelet Volume 6.5; Monocytes # (A) 0.4 k/uL (0-1.0); Monocytes % (A) 6 %; Neutrophils # (A) 4.9 k/uL (1.3-7.7); Neutrophils % (A) 65 %; Platelet Count 268 k/uL (150-450); RBC 4.36 m/uL (4.30-5.90); RDW 12.5 % (11.5-15.5); WBC 7.5 k/uL (3.8-10.6)
[2023-07-28 18:01] LABS: INR 0.9 (<1.2); Prothrombin Time 10.1 sec (10.0-12.5)
[2023-07-28 18:05] LABS: ALT 35 U/L (4-49); AST 40 U/L (17-59); African American GFR (CKD) >90 (>60 ml/min/1.73 sqM); Albumin 4.5 g/dL (3.5-5.0); Alkaline Phosphatase 89 U/L (38-126); Anion Gap 12 mmol/L; Blood Urea Nitrogen 20 mg/dL (9-20); Calcium 9.4 mg/dL (8.4-10.2); Carbon Dioxide 22 mmol/L (22-30); Chloride 104 mmol/L (98-107); Glucose 110 mg/dL (74-99); Non-African American GFR(CKD) 87 (>60 ml/min/1.73 sqM); Potassium 4.8 mmol/L (3.5-5.1); Sodium 138 mmol/L (137-145); Total Bilirubin 0.5 mg/dL (0.2-1.3); Total Protein 7.8 g/dL (6.3-8.2)
[2023-07-28 18:16] LABS: Partial Thromboplastin Time 21.8 sec (22.0-30.0)
[2023-07-28 18:47] VITALS: BP 145/79; PULSE 76; RESP 18
== END 2023-07-28 18:39 | disposition home or self-care (01) ==
LOC: EC 15:07 → SUPCPDRO 15:07 → EC 18:39
DX: I82.402 Acute embolism and thrombosis of unspecified deep veins of left lower extremity (principal); I10 Essential (primary) hypertension; E78.5 Hyperlipidemia, unspecified; F32.A Depression, unspecified; Z79.82 Long term (current) use of aspirin; Z79.899 Other long term (current) drug therapy
CPT/HCPCS: 36415; 80053; 85025; 85610; 85730; 99283